=== PATIENT | female | born 1960 | race Caucasian/White ===

== ENCOUNTER 2022-08-09 14:43 | Outpatient (OUT) | payer OTHER, SELFPAY ==
--- NOTE | 2022-08-09 14:49 | MM_ITS ---
Patient: LINDA GAN Exam Date: 08/09/2022 : 1960 Gender:F Ordering : DR LORRIE BA Admission #: [id number] Family : DR NABIL Acosta YUSUFREVA Order #: [id number] CLICK HERE TO VIEW EXAM RADIOLOGY REPORT PROCEDURE: MM TOMOSYNTHESIS SCREENING BI COMPARISON: MG MAMM SCREEN 3D CEDRICK CAD, 08/04/2021. MG MAMM SCREEN 3D CEDRICK CAD, 08/03/2020. MG MAMM SCREEN CEDRICK W CAD, 07/30/2019. MG MAMM CEDRICK SCRN W CAD DIG, 02/12/2013. INDICATIONS: Screening mammogram Z12.31 Calculator Name NCI Breast Cancer Risk Assessment Tool 5 Year Breast Cancer Risk 1.30% Lifetime Breast Cancer Risk 5.50% Personal Breast Cancer No Personal Ovarian Cancer No Treatments None Family Cancers None LOCATION: [facility] BREAST COMPOSITION: Scattered areas fibroglandular density. FINDINGS: DIAGNOSTIC CATEGORY 2--BENIGN FINDING: RIGHT BREAST: No significant suspicious finding. Scattered benign-appearing calcifications are present. No significant change has occurred. LEFT BREAST: No significant suspicious finding. Scattered benign-appearing calcifications are present. No significant change has occurred. RECOMMENDATIONS: ROUTINE MAMMOGRAM AND CLINICAL EVALUATION IN 12 MONTHS. PLEASE NOTE: A NORMAL MAMMOGRAM DOES NOT EXCLUDE THE POSSIBILITY OF BREAST CANCER. A CLINICALLY SUSPICIOUS PALPABLE LUMP SHOULD BE BIOPSIED. Dictated by: Emigdio Zepeda M.D. on 08/10/2022 at 16:18 Approved by: Emigdio Zepeda M.D. on 08/10/2022 at 16:20
== END 2022-08-09 14:44 ==
LOC: MAMMO 14:44
PROVIDERS: PCP Family Medicine; Visit Provider Nurse Practitioner Family
DX: Z12.31 Encounter for screening mammogram for malignant neoplasm of breast (principal)
CPT/HCPCS: 77063; 77067

== ENCOUNTER 2023-08-15 14:46 | Outpatient (OUT) | payer OTHER, SELFPAY ==
--- NOTE | 2023-08-15 14:49 | MM_ITS ---
Patient Name: LINDA GAN MR#: [id number] : 1960 Exam Date: 08/15/2023 Ordering Doctor: DR LORRIE BA RADIOLOGY REPORT PROCEDURE: MM TOMOSYNTHESIS SCREENING BI COMPARISON: MM TOMOSYNTHESIS SCREENING BI, 08/09/2022. MG MAMM SCREEN 3D CEDRICK CAD, 08/04/2021. MG MAMM SCREEN 3D CEDRICK CAD, 08/03/2020. MG MAMM CEDRICK SCRN W CAD DIG, 02/12/2013. INDICATIONS: Screening Calculator Name NCI Breast Cancer Risk Assessment Tool 5 Year Breast Cancer Risk 1.30% Lifetime Breast Cancer Risk 5.30% Personal Breast Cancer No Personal Ovarian Cancer No Treatments None Family Cancers None LOCATION: [facility] BREAST COMPOSITION: There are scattered areas of fibroglandular density. FINDINGS: DIAGNOSTIC CATEGORY 2--BENIGN FINDING: RIGHT BREAST: No significant suspicious finding. Scattered benign-appearing calcifications are present. No significant change has occurred. LEFT BREAST: No significant suspicious finding. Scattered benign-appearing calcifications are present. No significant change has occurred. RECOMMENDATIONS: ROUTINE MAMMOGRAM AND CLINICAL EVALUATION IN 12 MONTHS. PLEASE NOTE: A NORMAL MAMMOGRAM DOES NOT EXCLUDE THE POSSIBILITY OF BREAST CANCER. A CLINICALLY SUSPICIOUS PALPABLE LUMP SHOULD BE BIOPSIED. Dictated by: Emigdio Zepeda M.D. on 08/17/2023 at 08:44 Approved by: Emigdio Zepeda M.D. on 08/17/2023 at 08:52
== END 2023-08-15 14:47 | disposition home or self-care (01) ==
LOC: MAMMO 14:46
PROVIDERS: PCP Family Medicine; Visit Provider Nurse Practitioner Family
DX: Z12.31 Encounter for screening mammogram for malignant neoplasm of breast (principal)
CPT/HCPCS: 77063; 77067